=== PATIENT | female | born 1990 | race Two or more races ===

== ENCOUNTER 2019-04-06 06:29 | Inpatient (IN) | payer OTHER ==
[~2019-04-06] VITALS: Ht 162.6 cm; Wt 2.7 kg
[2019-04-06] MEDS ORDERED: NIFEDIPINE ER30 M1 PO (08:12)
[2019-04-06] MEDS ORDERED: LOVENOX40 MG/0.4 SUBCUTANEO (08:13)
[2019-04-06] MEDS ORDERED: ASA81 MG PO (08:13)
== END 2019-04-08 16:13 | disposition home or self-care (01) | DRG 788 ==
LOC: LDR 06:29 → OB/GYN 06:29 → LDR 07:28 → O/R 13:13 → LDR 14:06 → OB/GYN 04-07 13:22
PROVIDERS: ADMIT Specialist
PROC: 4A1HXCZ Monitoring of Products of Conception, Cardiac Rate, External Approach (ICD-10-PCS; 2019-04-06)
PROC: 10D00Z1 Extraction of Products of Conception, Low, Open Approach (ICD-10-PCS; principal; 2019-04-06 08:45)
DX: O82 Encounter for cesarean delivery without indication (principal); Z3A.38 38 weeks gestation of pregnancy; Z37.0 Single live birth

== ENCOUNTER 2022-05-20 12:18 | Outpatient (CLI) | payer OTHER ==
[~2022-05-20 12:18] MED LIST: ASA81 MG PO; LOVENOX40 MG/0.4 SUBCUTANEO; NIFEDIPINE ER30 M1 PO
== END 2022-05-20 13:22 | disposition home or self-care (01) ==
LOC: NST 12:18
PROVIDERS: ATTEND Obstetrics & Gynecology
DX: Z34.83 Encounter for supervision of other normal pregnancy, third trimester (principal)

== ENCOUNTER 2023-07-19 14:10 | Outpatient (CLI) | payer OTHER | END 2023-07-19 14:24 | disposition home or self-care (01) | LOC: TOM 14:10 | PROVIDERS: ATTEND Specialist | DX: J15.7 Pneumonia due to Mycoplasma pneumoniae (principal) ==

== ENCOUNTER 2024-06-20 12:05 | Outpatient (CLI) | payer OTHER | END 2024-06-20 12:07 | disposition home or self-care (01) | LOC: SONOGRAMA 12:05 | PROVIDERS: ATTEND Specialist | DX: M71.21 Synovial cyst of popliteal space [Baker], right knee (principal) ==

== ENCOUNTER 2024-09-28 08:19 | Outpatient (CLI) | payer OTHER | END 2024-09-28 08:28 | disposition home or self-care (01) | LOC: MRI 08:19 | PROVIDERS: ATTEND Specialist | DX: S83.206A Unspecified tear of unspecified meniscus, current injury, right knee, initial encounter (principal) | CPT/HCPCS: 73721 ==